=== PATIENT | female | born 1995 | race African-American/Black ===

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

== ENCOUNTER 2021-11-10 10:50 | Emergency (ER) | payer MEDICAID ==
[~2021-11-10] VITALS: Ht 165.1 cm; Wt 56.7 kg
[2021-11-10 11:37] VITALS: BP 124/82
[2021-11-10] MEDS ORDERED: METH500T22 PO (12:08)
== END 2021-11-10 12:31 | disposition home or self-care (01) ==
LOC: ER 10:50
DX: S43.401A Unspecified sprain of right shoulder joint, initial encounter (principal); Z79.899 Other long term (current) drug therapy; Z88.8 Allergy status to other drugs, medicaments and biological substances; X50.1XXA Overexertion from prolonged static or awkward postures, initial encounter; Y93.9 Activity, unspecified; Y92.89 Other specified places as the place of occurrence of the external cause; Y99.0 Civilian activity done for income or pay